=== PATIENT | female | born 1940 | race Caucasian/White ===

== ENCOUNTER 2016-05-09 10:38 | Emergency (ER) | payer OTHER ==
[2016-05-09 10:55] VITALS: RESP 18
--- NOTE | 2016-05-09 10:59 | CPEKG ---
Heart Rate: 57 RR Interval: 1053 P-R Interval: 168 QRSD Interval: 90 QT Interval: 480 QTC Interval: 468 P Pandora: -42 QRS Pandora: 14 T Wave Pandora: 12 EKG Severity - NORMAL ECG - EKG Impression: SINUS RHYTHM EKG Impression: Nonspecific changes see laterally in V4 through V6 with biphasic T-waves in V5 EKG Impression: and V6. Electronically Signed By: Alonso Thomason 09-May-2016 15:57:31
[2016-05-09 11:15] LABS: % IMMATURE GRANULYOCYTES 0.4 % (0.0-1.1); ABSOLUTE IMMATURE GRANULOCYTES 0.02 10^3/uL (0.00-0.10); ADD DIFF? NO; ADD MORPH? NO; ADD SCAN? NO; ATYPICAL LYMPHOCYTE FLAG 0 (0-99); FRAGMENT RBC FLAG 0 (0-99); HEMATOCRIT 40.6 % (38.0-47.0); HEMOGLOBIN 14.2 g/dL (12.6-16.3); LEFT SHIFT FLG 0 (0-99); LIPEMIA HEMOLYSIS FLAG 90 (0-99); MEAN CELL HEMOGLOBIN 31.7 pg (27.9-34.1); MEAN CELL VOLUME 90.6 fL (81.5-99.8); MEAN PLATELET VOLUME 9.4 fL (8.7-11.7); PLATELET CLUMPS FLAG 0 (0-99); PLATELET COUNT 235 10^3/uL (150-400); RED BLOOD CELL COUNT 4.48 10^6/uL (4.18-5.33); RED CELL DISTRIBUTION WIDTH 12.4 % (11.5-15.2)
--- NOTE | 2016-05-09 11:15 | UCPHY ---
H & P Patient Type: Established Chief Complaint Nursing Narrative: c/o Dizzy spells/High blood pressure/ and confusion on and off x 1 wk Time Seen by Provider: 05/09/16 10:54 HPI/ROS: CHIEF COMPLAINT: episode this morning for 30-45 minutes of confusion HISTORY OF PRESENT ILLNESS: 76-year-old lady for the last month has had periodic trouble whereby she will be asked question or go do something and will be able to actually complete the thought process or the task. For example, this morning that she attended [employer] services and then went to [employer] for hot chocolate, something to quite often. While there at the restaurant, somewhat testy question about something she should not been able to elaborate and discussed regarding her 's health. This did not quite work out and she was stumped and looked has been in complete blank and this persisted. At the same token she was able to talk completely and had no speech impediment or difficulty with word finding it was just that she can really do with the question which was something she in fact should have been able to do so. Her notes that she did not quite seem to come out of it until they arrived home some 45 minutes later. There has been no headache. These episodes happening anywhere from once to twice daily. At no time has she had had trouble actually contributing to the household as she usually does such as doing the cooking which she is in command of add shopping She has had no numbness tingling or focal motor weakness or loss of function of arm or leg. No headache. Blood pressure is somewhat elevated for her but not struggling so. REVIEW OF SYSTEMS: Constitutional: No fever, no chills. Eyes: No diplopia. ENT: No sore throat. Cardiovascular: No chest pain, no palpitations. Respiratory: No cough, shortness of breath, or wheezing. Gastrointestinal: No nausea vomiting or diarrhea. No abdominal pain. Genitourinary: No hematuria or frequency. Musculoskeletal: No back pain. Skin: No rashes. Neurological: See above 10 point ROS otherwise negative Source: Patient Exam Limitations: Other (Underlying history of dementia, mild) - Personal History Current Tetanus Diphtheria and Acellular Pertussis (TDAP): Yes - Medical/Surgical History Hx Asthma: No Hx Chronic Respiratory Disease: No Hx Diabetes: Yes Hx Cardiac Disease: Yes Hx Renal Disease: No Hx Cirrhosis: No Hx Alcoholism: No Hx HIV/AIDS: No Hx Splenectomy or Spleen Trauma: No Other PMH: CAD, ASD, HTN - Family History Significant Family History: No pertinent family hx - Social History Smoking Status: Never smoked Alcohol Use: None Drug Use: None - Physical Exam Exam: General Appearance: Alert, no distress. Afebrile. Normal phonation. No respiratory distress. Pleasant demeanor, thin, little old lady. Eyes: Pupils equal and round no pallor or injection. No icterus ENT, Mouth: Mucous membranes moist. Pharynx without erythema or exudate. TM Clear. Neck: No adenopathy. Supple. No JVD. Trachea in midline. Respiratory: There are no retractions, lungs are clear to auscultation. Cardiovascular: Regular rate and rhythm. Abdomen: Soft and nontender, no masses, bowel sounds normal. Femoral pulses equal. Neurological: Ox3. No motor weakness. Sensation intact. Gait nl. Normal station. Normal tandem walking. Normal [id number]. Normal [id number]. Visual seay are intact. Skin: Warm and dry, no rashes. Musculoskeletal: No joint swelling. Extremities: No edema. Homans sign negative. No cords. Psychiatric: Patient is oriented X 3, there is no agitation Constitutional: Initial Vital Signs Temperature (C) 36.6 C 05/09/16 10:54 Heart Rate 97 05/09/16 10:54 Respiratory Rate 18 05/09/16 10:54 Blood Pressure 203/79 H 05/09/16 10:54 O2 Sat (%) 97 05/09/16 10:54 O2 Delivery Mode Room Air O2 (L/minute) 2 Allergies/Adverse Reactions: promethazine Allergy (Severe, Verified 05/10/16 10:53) Loss of consciousness promethazine HCl [From Phenergan] Allergy (Severe, Verified 05/10/16 10:53) Other-Enter Comments Shellfish *RETIRED-12/23/11 [Shellfish] Allergy (Severe, Verified 05/10/16 10:53 ) Swelling/neck,face,throat erythromycin base [Erythromycin Base] Allergy (Intermediate, Verified 05/10/16 10:53) Other-Enter Comments Penicillins Allergy (Intermediate, Verified 05/10/16 10:53) Rash Home Medications: Medication Instructions Recorded Aspirin [Aspirin 325 mg (*)] 325 mg PO DAILY 05/10/16 Cholecalciferol Vit D3 [Vitamin D3 2,000 units PO DAILY 05/10/16 (*)] Herbals/Supplements -Info Only 1 ea PO DAILY 05/10/16 Levothyroxine [Synthroid 50 mcg 50 mcg PO DAILY06 05/10/16 (*)] Losartan/Hydrochlorothiazide 1 each PO DAILY 05/10/16 [Losartan-Hctz 100-25 mg Tab] Potassium Cl [Klor-Con 20 meq (*)] 20 meq PO DAILY 05/10/16 Pravastatin Sodium 20 mg PO DAILY 05/10/16 amLODIPine BESYLATE [Norvasc 2.5 2.5 mg PO DAILY 05/10/16 mg (*)] Medical Decision Making - Diagnostics EKG Interpretation: EKG: Interpreted by me contemporaneously. Normal sinus rhythm. Heart rate [ 57 ]. QTc [ for 68] STT segment: Nonspecific laterally in V4 through V6 as well as flattened to F. T Waves: Flat and biphasic in V5 and V6 Summary: Mild nonspecific ST-T changes. Imaging: CT scan as interpreted by the radiologist and discussed with radiologist and reviewed by me: Senescent changes. No bleed. No tumor. ED Course/Re-evaluation: Her clinical status was stable in she had no recurrence of her symptomatology that she expressed from this morning while here. Blood pressure slowly improved to a mild degree. I discussed with patient's prospect of going hospital for further diagnostic testing. They bought. Evidently she had a ruchi road some 18 months ago while at the local hospital including acquiring C diff and also having a strikingly severe reaction to Phenergan that required hospitalization in the ICU thus they really wanted to forego anything like that. As able to review old chart noted that she did have a PFO as diagnosed on a transesophageal echocardiogram in 2009. Furthermore I called her PCP who deferred to Dr. Ybarra. The PCP did however make recommendations of any amlodipine due to her already high dose lisinopril/ hydrochlorothiazide. Dr. Ybarra expressed the plan for a EEG as an outpatient and would arrange such. He suggested a carotid study as well. As this woman had an MRI and May of 2015 he does not recommend further diagnostic testing Laboratory studies here were stable. CT scan negative for tumor or bleed. - Data Points Laboratory Results: Laboratory Results 05/09/16 11:05/09/16 11:07 Departure - Departure Disposition: Home, Routine, Self-Care Clinical Impression: Episode of altered cognition, Patent foramen ovale Hypertension Qualifiers: Hypertension type: essential hypertension Qualifier Code: (I10) Essential ( primary) hypertension Condition: Good Instructions: Altered Mental Status (ED) Additional Instructions: Increased dose of aspirin from the 81 mg to 325 daily. He may use Excotrin as a coated aspirin if you have stomach trouble Dr. Ybarra will call you about setting up an EEG as well as a follow-up visit. Dr. Pires has this is a plan for you to take a new medicine, Amlodipine, for blood pressure. Call her office to schedule a foloow up in the next 10 - 14 days. Referrals: An Pires, [employer] [Primary Care Provider] - As per Instructions - PQRS PQRS Measurement: 134: Depression screening and followup, PRIME MD-PHQ2 (12 years and older) Over the last 2 weeks, how often have you been bothered by any of the following problems? 1. Feeling down, depressed, or hopeless? 2. Little interest or pleasure in doing things? Patient answered no to both 1 and 2 130: Documentation of medications. Reviewed all patient medications, doses, route and frequency. 226: Do you smoke? 47: 65 and older: Advanced care planning. Patient designates surrogate decision maker as spouse . Patient has advanced directive. 51: 18 years old and older with diagnosis of COPD, spirometry performance. Patient has no history of COPD 52: 18 years old and older with COPD and symptoms of COPD or FEV1<60% predicted prescribed a B Agonist. No hx of COPD.
[2016-05-09 11:28] LABS: ANION GAP 9 mEq/L (8-16); CALCIUM 9.1 mg/dL (8.5-10.4); CARBON DIOXIDE 28 mEq/l (22-31); CHLORIDE 103 mEq/L (97-110); CREATININE 0.7 mg/dL (0.6-1.0); GLOMERULAR FILTRATION RATE > 60; GLUCOSE 90 mg/dL (70-100); MAGNESIUM 2.1 mg/dL (1.6-2.3); POTASSIUM 3.5 mEq/L (3.5-5.2); SODIUM 140 mEq/L (134-144)
[2016-05-09 11:41] LABS: TROPONIN I < 0.012 ng/mL (0-0.034)
--- NOTE | 2016-05-09 11:43 | CT ---
CT Head (Without Contrast) Indication: Dizziness and confusion. Technique: Standard noncontrast head CT protocol utilizing 5 mm thick collimated slices and field of view of 23 cm. Dose reduction techniques were utilized. Comparison: Head CT dated February 15, 2009. Findings: The brain is normally developed. Minimal calcification of the cavernous segment of the dist al internal carotid artery is unchanged since 2008. No intracranial hemorrhage, mass lesion, swelling , or extraaxial fluid collection. The ventricles are normal caliber and midline. The quintanilla and white m atter has normal attenuation. No evidence of ischemia. The bones are unremarkable. The paranasal sinu ses are clear. Impression: Negative. No evidence of intracranial hemorrhage, ischemia, or mass. Comment: Results were discussed with Dr. Alonso Thomason at 11:37 May 09, 2016.
--- NOTE | 2016-05-09 11:57 | DX ---
Chest, PA and lateral. History: Chest pain. Confusion and disorientation. Comparison: February 2014. Findings: Heart size is enlarged and stable. Pulmonary vascularity appears normal. The lungs are mitesh r. No evidence for pleural effusion or pneumothorax. Mild degenerative changes seen in the thoracic s pine. Impression: Stable cardiomegaly. No evidence for acute cardiopulmonary abnormality.
[2016-05-09 13:01] VITALS: PULSE 78
[2016-05-09 13:30] VITALS: BP 177/91; TEMP 99; O2SAT 97
== END 2016-05-09 13:24 | disposition home or self-care (01) ==
LOC: CED 10:38
DX: R41.89 Other symptoms and signs involving cognitive functions and awareness (principal); I10 Essential (primary) hypertension; Q21.1 Atrial septal defect; I51.7 Cardiomegaly; I25.10 Atherosclerotic heart disease of native coronary artery without angina pectoris; Z88.0 Allergy status to penicillin
CPT/HCPCS: 70450; 71020; 93005; G0463; 80048-PO; 83735-PO; 84484-PO; 85025-PO

== ENCOUNTER 2016-05-10 10:47 | Observation (INO) | payer OTHER ==
--- NOTE | 2016-05-10 11:18 | CPEKG ---
Heart Rate: 58 RR Interval: 1034 P-R Interval: 164 QRSD Interval: 88 QT Interval: 520 QTC Interval: 511 P Meridian: -22 QRS Meridian: 33 T Wave Meridian: -61 EKG Severity - ABNORMAL ECG - EKG Impression: SINUS RHYTHM EKG Impression: ABNORMAL T, CONSIDER ISCHEMIA, LATERAL LEADS EKG Impression: PROLONGED QT INTERVAL Electronically Signed By: Haroon Aguirre 10-May-2016 13:33:18
[2016-05-10] MEDS ORDERED: ASPIRIN 81 MG CHEWABLE TAB ONE (11:24)
[2016-05-10 11:38] LABS: % IMMATURE GRANULYOCYTES 0.3 % (0.0-1.1); ABSOLUTE IMMATURE GRANULOCYTES 0.02 10^3/uL (0.00-0.10); ADD DIFF? NO; ADD MORPH? NO; ADD SCAN? NO; ATYPICAL LYMPHOCYTE FLAG 0 (0-99); FRAGMENT RBC FLAG 0 (0-99); HEMATOCRIT 45.1 % (38.0-47.0); HEMOGLOBIN 15.9 g/dL (12.6-16.3); LEFT SHIFT FLG 0 (0-99); LIPEMIA HEMOLYSIS FLAG 90 (0-99); MEAN CELL HEMOGLOBIN 31.2 pg (27.9-34.1); MEAN CELL HEMOGLOBIN CONCENTR. 35.3 g/dL (32.4-36.7); MEAN CELL VOLUME 88.6 fL (81.5-99.8); MEAN PLATELET VOLUME 9.6 fL (8.7-11.7); PLATELET CLUMPS FLAG 10 (0-99); PLATELET COUNT 255 10^3/uL (150-400); RED BLOOD CELL COUNT 5.09 10^6/uL (4.18-5.33); RED CELL DISTRIBUTION WIDTH 12.2 % (11.5-15.2)
--- NOTE | 2016-05-10 11:45 | EDPHY ---
H & P Stated Complaint: DIZZY, NUMBNESS TINGLING LEGS, NEAR SYNCOPE Time Seen by Provider: 05/10/16 10:50 HPI/ROS: CHIEF COMPLAINT: Dizziness, tingling, chest pain HISTORY OF PRESENT ILLNESS: This is a 76-year-old female who presents with complaints of dizzy episodes, tingling in her legs and hands, and chest pain yesterday. Patient is a somewhat poor historian as is her . For about a week she has had episodes of dizziness that she describes as spinning and needs to sit down. also reports that she has had episodes where she is altered and can't focus and seems to lose her thoughts. These episodes last a minute or 2. It is unclear if the dizziness and the altered mentation occur at the same time. Yesterday she evidently had some chest pain and was seen at the urgent care. They increased her aspirin and also put her on amlodipine. Today she was at her primary care physician's office where she was reporting some chest discomfort, was anxious, hyperventilating, and dizzy. They declined ambulance transfer and her brought her here. Patient has some unclear history of a valve problem for which she sees Dr. Cuellar. Has had no open heart surgery, no stents, no valve surgery. Patient denies asthma or emphysema. She denies weakness in an arm or leg, speech difficulty, or other stroke-like symptoms. No fevers or chills, cold, cough, vomiting, diarrhea, urinary complaints or headache. REVIEW OF SYSTEMS: Aside from elements discussed in the HPI, a comprehensive 10-point review of systems was reviewed and is negative. PAST MEDICAL HISTORY: Hypertension SOCIAL HISTORY: Here with her . VITAL SIGNS Reviewed by me. GENERAL: Elderly female, seems very restless. Difficult historian. Denies pain. HEENT: Atraumatic. Eyes: PERRL, EOMI, no icterus, no injection. Cranial nerves 2-12 are intact. Mouth: moist mucous membranes. No erythema or lesions. Neck: supple with no adenopathy. LUNGS: Clear to auscultation bilaterally, no wheezes, rhonchi or rales. CARDIAC: Regular rate and rhythm, no rubs, murmurs or gallops. ABDOMEN: Soft, nontender, nondistended, bowel sounds normal. BACK: No CVA tenderness. EXTREMITIES: No trauma. No edema. Range of motion is normal throughout. NEURO: Alert and oriented, motor strength 5/5 throughout. Sensation intact to light touch. SKIN: Warm and dry, no rash. PSYCHIATRIC: Normal mentation, no agitation. - Personal History Current Tetanus/Diphtheria Vaccine: Yes Tetanus Vaccine Date: < 10 YEARSX - Medical/Surgical History Hx Asthma: No Hx Chronic Respiratory Disease: No Hx Diabetes: Yes Hx Cardiac Disease: Yes Hx Renal Disease: No Hx Cirrhosis: No Hx Alcoholism: No Hx HIV/AIDS: No Hx Splenectomy or Spleen Trauma: No Other PMH: CAD, ASD, HTN - Social History Smoking Status: Never smoked Constitutional: Initial Vital Signs Temperature (C) 37 C 05/10/16 10:50 Heart Rate 65 05/10/16 10:50 Respiratory Rate 16 05/10/16 10:50 Blood Pressure 153/86 H 05/10/16 10:50 O2 Sat (%) 97 05/10/16 10:50 O2 Delivery Mode Room Air Allergies/Adverse Reactions: promethazine Allergy (Severe, Verified 05/10/16 10:53) Loss of consciousness promethazine HCl [From Phenergan] Allergy (Severe, Verified 05/10/16 10:53) Other-Enter Comments Shellfish *RETIRED-12/23/11 [Shellfish] Allergy (Severe, Verified 05/10/16 10:53 ) Swelling/neck,face,throat erythromycin base [Erythromycin Base] Allergy (Intermediate, Verified 05/10/16 10:53) Other-Enter Comments Penicillins Allergy (Intermediate, Verified 05/10/16 10:53) Rash Home Medications: Medication Instructions Recorded Aspirin [Aspirin 325 mg (*)] 325 mg PO DAILY 05/10/16 Cholecalciferol Vit D3 [Vitamin D3 2,000 units PO DAILY 05/10/16 (*)] Herbals/Supplements -Info Only 1 ea PO DAILY 05/10/16 Levothyroxine [Synthroid 50 mcg 50 mcg PO DAILY06 05/10/16 (*)] Losartan/Hydrochlorothiazide 1 each PO DAILY 05/10/16 [Losartan-Hctz 100-25 Mg Tab] Potassium Cl [Klor-Con 20 meq (*)] 20 meq PO DAILY 05/10/16 Pravastatin Sodium 20 mg PO DAILY 05/10/16 amLODIPine BESYLATE [Norvasc 2.5 2.5 mg PO DAILY 05/10/16 mg (*)] Medical Decision Making - Diagnostics EKG Interpretation: 12-LEAD EKG: Please see the full report in [facility]. My interpretation: ST depression inferiorly, laterally. Imaging: Results: CT scan of the head was obtained. I viewed the images independently on the PACS system. I discussed the results of the study with the radiologist. Impression: No acute findings. Please see the full radiology report. ED Course/Re-evaluation: 76-year-old female presented emergency department with episodes of dizziness, episode of chest pain yesterday, and episodes of altered mentation. Emergency department evaluation included EKG with nonspecific ST depression inferiorly and laterally. Troponin was negative. BNP is minimally elevated at 1200, D-dimer was negative. Chest x-ray shows stable cardiomegaly, head CT was negative. Patient was admitted to the hospital for further evaluation of these episodes, as well as further evaluation for possible cardiac source Course was discussed with Anjelica from [facility]. Patient will be admitted to Dr. Ladd. Differential Diagnosis: Differential diagnosis of the patient's dizziness was considered including but not limited to peripheral and central causes of vertigo, cardiac arrhythmias, cardiac ischemia, electrolyte disturbances, neurologic causes, orthostatic causes including dehydration, and blood loss. Consult/Admit Bed Type: Dr. Ladd, [facility] - Data Points Laboratory Results: Laboratory Results 05/10/16 11:17 05/10/16 11:17 05/10/16 11:17 WBC 5.89 10^3/uL (3.80-9.50) RBC 5.09 10^6/uL (4.18-5.33) Hgb 15.9 g/dL (12.6-16.3) Hct 45.1 % (38.0-47.0) MCV 88.6 fL (81.5-99.8) MCH 31.2 pg (27.9-34.1) MCHC 35.3 g/dL (32.4-36.7) RDW 12.2 % (11.5-15.2) Plt Count 255 10^3/uL (150-400) MPV 9.6 fL (8.7-11.7) Neut % (Auto) 77.7 H % (39.3-74.2) Lymph % (Auto) 14.4 L % (15.0-45.0) [place] % (Auto) 6.5 % (4.5-13.0) Eos % (Auto) 0.3 L % (0.6-7.6) Baso % (Auto) 0.8 % (0.3-1.7) Nucleat RBC Rel Count 0.0 % (0.0-0.2) Absolute Neuts (auto) 4.57 10^3/uL (1.70-6.50) Absolute Lymphs (auto) 0.85 L 10^3/uL (1.00-3.00) Absolute Monos (auto) 0.38 10^3/uL (0.30-0.80) Absolute Eos (auto) 0.02 L 10^3/uL (0.03-0.40) Absolute Basos (auto) 0.05 10^3/uL (0.02-0.10) Absolute Nucleated RBC 0.00 10^3/uL (0-0.01) Immature Gran % 0.3 % (0.0-1.1) Immature Gran # 0.02 10^3/uL (0.00-0.10) D-Dimer 0.28 ug/mLFEU (0.00-0.50) Sodium 145 H mEq/L (134-144) Potassium 3.1 L mEq/L (3.5-5.2) Chloride 105 mEq/L (97-110) Carbon Dioxide 25 mEq/l (22-31) Anion Gap 15 mEq/L (8-16) BUN 19 mg/dL (7-23) Creatinine 0.8 mg/dL (0.6-1.0) Estimated GFR > 60 Glucose 102 H mg/dL (70-100) Calcium 9.3 mg/dL (8.5-10.4) Total Bilirubin 1.2 mg/dL (0.1-1.4) Conjugated Bilirubin 0.1 mg/dL (0.0-0.5) Unconjugated Bilirubin 1.1 mg/dL (0.0-1.1) AST 26 IU/L (14-46) ALT 32 IU/L (9-52) Alkaline Phosphatase 82 IU/L (38-126) Troponin I < 0.012 ng/mL (0-0.034) NT-Pro-B Natriuret Pep 1260 H pg/mL (0-450) Total Protein 7.5 g/dL (6.3-8.2) Albumin 4.3 g/dL (3.5-5.0) Lipase 104.0 IU/L (23-300) Departure - Departure Disposition: [facility] Inpatient Acute Clinical Impression: Dizziness Chest pain Qualifiers: Chest pain type: unspecified Qualifier Code: (R07.9) Chest pain, unspecified Condition: Good
[2016-05-10 11:48] LABS: ALANINE AMINOTRANSFERASE 32 IU/L (9-52); ALBUMIN 4.3 g/dL (3.5-5.0); ALKALINE PHOSPHATASE 82 IU/L (38-126); ANION GAP 15 mEq/L (8-16); ASPARTATE AMINOTRANSFERASE 26 IU/L (14-46); BILIRUBIN,TOTAL 1.2 mg/dL (0.1-1.4); BILIRUBIN-CONJUGATED 0.1 mg/dL (0.0-0.5); BILIRUBIN-UNCONJUGATED 1.1 mg/dL (0.0-1.1); CALCIUM 9.3 mg/dL (8.5-10.4); CARBON DIOXIDE 25 mEq/l (22-31); CHLORIDE 105 mEq/L (97-110); CREATININE 0.8 mg/dL (0.6-1.0); GLOMERULAR FILTRATION RATE > 60; GLUCOSE 102 mg/dL (70-100); POTASSIUM 3.1 mEq/L (3.5-5.2); SODIUM 145 mEq/L (134-144); TOTAL PROTEIN 7.5 g/dL (6.3-8.2)
[2016-05-10 11:59] LABS: TROPONIN I < 0.012 ng/mL (0-0.034)
--- NOTE | 2016-05-10 12:16 | CT ---
CT Head Without Contrast History: Dizziness, altered mental status. Comparison: CT head May 09, 2016. Technique: Axial unenhanced images were obtained from the vertex through the skull base. Dose reduct ion techniques were utilized. Findings: Crooks-white differentiation is preserved. There is mild diffuse cerebral atrophy with scatte red periventricular and subcortical low attenuation, suggesting chronic microvascular ischemic gliosi s. No intracranial hemorrhage is identified. No extraaxial fluid collections are identified. There is no mass, mass effect or evidence of infarct. Atherosclerotic calcification is present in the dista l internal carotid arteries. The skull and skull base are unremarkable. The paranasal sinuses and ma stoid air cells are normally aerated. Impression: 1. No acute intracranial findings. If symptoms persist and clinical suspicion warrants, consider MRI. 2. Diffuse cerebral atrophy with scattered periventricular and subcortical low attenuation consistent with chronic microvascular ischemic gliosis. Findings discussed with Alee Velasquez 05/10/2016 at 12:10 hours.
--- NOTE | 2016-05-10 12:16 | DX ---
PA and lateral chest x-ray 1137 hours. History: Chest pain with dizziness and confusion. Findings: Comparison to May 09, 2016. Heart size remains mildly enlarged. Pulmonary vasculature is not significantly engorged. The lungs ar e clear without consolidation, effusion, or pneumothorax. The lungs are mildly hyperexpanded. Mild de generative hypertrophic osteophytes are present mid to lower thoracic spine. Impression: 1. Stable mild cardiomegaly. 2. No active cardiopulmonary disease seen. 3. Hyperexpanded lungs. This can be seen with mild underlying COPD.
[2016-05-10] MEDS ORDERED: ONDANSETRON 4 MG/2 ML VIAL IVP PRN (14:19)
[2016-05-10] MEDS ORDERED: ACETAMINOPHEN 650 MG SUPP PR PRN (14:19)
--- NOTE | 2016-05-10 14:23 | PDGENHP ---
History and Physical History and Physical: HISTORY AND PHYSICAL ADMISSION NOTE CC: Several episodes of altered alertness, along with tingling and numbness, and tremulousness HISTORY: The history from this patient is somewhat difficult as she clearly has very poor memory due to known dementia. In addition her is the main historian here and his memory is not entirely complete for some details. The patient was apparently in her usual state until approximately a week ago. Around that time she started having some spells of change in alertness while sitting in a chair. Her describes that she would be doing a puzzle reading a magazine and would close her eyes and slump slightly to 1 side. She would not respond when he talked to her. He did not make other efforts to arouse her. She appeared to be breathing normally during the spells and he says they lasted a few minutes each. When she did wake up she appeared not to be confused and would typically greens picker her reading or puzzle and resume working on them. There was nothing that looked worse sounded like seizure . Her breathing looks normal during these episodes and she did not appear to be any distress otherwise. She had a couple more episodes yesterday. In addition yesterday she had an episode where she was having trouble performing tasks she would normally do and seem somewhat confused about them. She did not have any time during all of this any focal speech or language difficulty, any difficulty walking, or any focal weakness or facial asymmetry that the patient's family noticed. Yesterday she did have some diffuse tremor and felt shaky, and during this also noticed numbness or tingling in both upper extremities. She also measure blood pressure home noticed to be high. She was seen at an urgent care where she was evaluated and her symptoms seemed to have resolved and blood pressures down so she was discharged home. Today she was seen by her primary care physician and again had high blood pressure and felt tremulous and shaky. She was sent to the ER for further evaluation and she is now admitted to the hospital where I am seeing her. PMH Moderately advanced dementia Hypertension Dyslipidemia Non flow limiting coronary artery disease by angiography Moderate to severe tricuspid regurgitation with pulmonary hypertension right cyst colic pressure at 48 based on echocardiogram 2012 unremarkable cardiac stress test in 2013 She has had 4 Holter monitors most recently in 2013 all showing PACs rare PVCs and the most recent showing some nonsustained SVT but no other arrhythmia ROS:10 system comprehensive review of systems is otherwise unrevealing Specifically there been no fevers, nausea vomiting, respiratory or other infectious symptoms, chest pain, palpitations, leg swelling, shortness of breath , bleeding, falls or injuries, changes in medicines, use of alcohol. Family history: There are no significant findings to indicate any concerns related to her current episode SOCIAL HISTORY: the patient is lives with her . Her and son are both with her at the bedside now and very supportive. No tobacco or alcohol MEDICATIONS: these are reconciled by the pharmacist in the electronic record and I reviewed the list and ordered appropriate medications. 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, no focal weakness ; stands and walks with these, balance looks good Pupils round equal and reactive to light normal diameter Skin: warm, dry, good color, no rash HEENT: normal Neck: no mass or jvd Resps: relaxed Lungs: clear breath sounds Heart: regular, no murmur Abdomen: soft, nondistended, nontender, +BS, no mass Upper Extremities: normal Lower Extremities: no edema, warm No Bleeding or bruising IV site: looks normal LABORATORY DATA: sodium slightly high 145 potassium slightly low, otherwise unremarkable lab studies in the ER 12 lead EKG in the ER, my personal interpretation of the tracing: Sinus bradycardia with evidence of LVH nothing ischemic RADIOLOGY STUDIES: CT scan of head done in the ER, my personal review of images: No evidence of stroke mass bleeding or other acute changes chest x-ray done in the ER, my personal review of images: Borderline evidence of COPD, no signs of heart failure, infection, effusions, mass ASSESSMENT: DIAGNOSES: # RECURRENT EPISODES OF ALTERED CONSCIOUSNESS OF UNCERTAIN MECHANISM ETIOLOGY # MILD HYPERTENSION # VAGUELY DESCRIBED EPISODE OF DIFFICULTY FIGURING OUT HOW TO DO TASKS YESTERDAY # SUSPECT SHE IS SOMEWHAT DEHYDRATED, AND HAS MILD HYPERNATREMIA # MILD HYPOKALEMIA # NO CURRENT DEFINITIVE CARDIAC SYMPTOMS OR FINDINGS, WITH HISTORY OF EXTENSIVE WORKUP WITHOUT CONCERNING ABNORMALITIES IDENTIFIED IN THE PAST # SOME SUSPICION OF SLEEP APNEA BASED ON HER 'S DESCRIPTIONS FROM HOME # MODERATELY ADVANCED DEMENTIA I have discussed her symptoms in detail with Dr. Get Ybarra. At this point we are feeling at her symptoms are not likely neurologic in origin. It is possible she may be falling asleep. It is possible there is some autonomic instability with alterations in blood pressure. She does appear to have some dehydration and this may be affecting her current episodes. There also could be some aspect of hypertension induced symptomatology as she was quite hypertensive at urgent care yesterday, although this may be as much due to anxiety as it is the cause of the symptoms. These symptoms do not seem likely to be seizure. Dr. Ybarra will consider this further and will determine whether or not EEG testing would be helpful. Another passable aggravating factor is the possibility that she might have some sleep apnea, and may have not been getting good sleep recently related to that. Given her age we could be concerned certainly about cardiac arrhythmia or other cardiac etiologies however there is nothing definitive about her symptoms here and her previous cardiac evaluations certainly did not show any high risk abnormalities. There was some pulmonary hypertension but she is not really having symptoms that sound likely due to pulmonary hypertension. PLANS: - admission for now to observation - home visitor home base head start -Gentle IV hydration with replacement of potassium -Serial orthostatic by vital sign measures -Consider further investigations based on her progress -At some point she should have sleep apnea testing done as her describes some symptoms partially suggestive of sleep apnea I have reviewed the patient's case in detail with Dr. Get Ybarra and Dr. Dejan Cuellar. I have received and reviewed clinic records from Dr. Cuellar office. I have reviewed the patient's past medical records as part of this assessment, including Urgent care records in detail from yesterday, as well as clinic records from Dr. Cuellar office
--- NOTE | 2016-05-10 17:50 | GCON ---
[f rep st] CONSULTATION NEUROLOGY CONSULTATION. HISTORY OF PRESENT ILLNESS: The patient is a very pleasant 76-year-old lady who I see as an outpatient for cognitive impairment/short-term memory loss. We most recently started a trial of memantine. I was called by Urgent Care yesterday regarding some dizzy spells and worsened short-term memory. I requested she get a carotid ultrasound, start on aspirin, and follow up with me along with an EEG order I placed. In the interim, she saw her primary care provider for dizziness and hypertension today. She began to cry out in pain, apparently at the primary care physician's office, along with having the paresthesias, was thought to possibly be having a panic attack and was sent to the emergency department. She was admitted for further evaluation. In reviewing these notes, I see that she has been having severe hypertension with systolics in the 200s in urgent care and amlodipine was started. Here, her blood pressure is better but she is now having some orthostatic changes. No focal numbness or lateralized numbness, weakness, field cuts, dysarthria, or dysphagia on my history with the patient and her who I called in the presence of the patient. What the patient and her describe as her chief complaint are "dizzy spells" where she feels faint with position changes as of today and before amlodipine, a general sense of feeling faint or dizzy in a more consistent fashion. They feel that this was related to her blood pressure initially. There was no loss of consciousness. No seizure activity. No focality or lateralized symptoms. Her memory is exacerbated with these symptoms. REVIEW OF SYSTEMS: A 10-point review of system was performed and only pertinent to HPI. PAST MEDICAL HISTORY: Please see Dr. Ladd's history and physical. SOCIAL HISTORY: Please see Dr. Ladd's history and physical. FAMILY HISTORY: Please see Dr. Ladd's history and physical. HOME MEDICATIONS: Please see Dr. Ladd's history and physical. ALLERGIES: Please see Dr. Ladd's history and physical. PHYSICAL EXAMINATION: VITAL SIGNS: Blood pressure now is 143/95, heart rate 67 , afebrile at 37, respirations 16. GENERAL: In no acute distress and very pleasant. She recognizes me when I enter the room. HIGHER MENTAL FUNCTION: She is awake and alert. No aphasia. CRANIAL NERVES: Normal 2 through 7 and 12. MOTOR FUNCTION: Reveals no focal weakness. No pronator drift. Normal reflexes throughout. SENSORY: Reveals normal light touch in all 4 extremities. Coordination shows no ataxia in her limbs. IMPRESSION AND PLAN: 1. Dizziness. 2. Cognitive impairment. 3. Hypertension. The patient's symptomatology may reflect an underlying hypertensive urgency with her systolics being above 200 causing the presenting symptoms. She is now having some orthostatic blood pressures after the amlodipine was started. We will check an MRI brain without contrast and carotid ultrasound to ensure there are no other acute vascular abnormalities present. It seems unlikely based on her history and exam. She will continue aspirin 325 mg daily coated with meals. We discussed potential risks, benefits, and alternatives of this dose of aspirin. We will encourage p.o. fluids. We will closely monitor in terms of ECG, telemetry, and blood pressures overnight. I will follow up on the above , and we will make further recommendations accordingly. Thank you for this consultation. /[id number]/MODL MTDD
[2016-05-10] MEDS ORDERED: NS W/ 20 KCl/L 1,000 ML IV SCH (18:00)
--- NOTE | 2016-05-10 18:28 | MR ---
MRI of the Brain (Without Contrast) History: Amnesia, recurrent. Comparison: May 19, 2015, CT earlier (negative) Technique: T1-weighted images were acquired axially and sagittally from the foramen magnum to the ve rtex. Axial fast inversion recovery, fast T2-weighted, GRE and diffusion-weighted axial images were obtained without contrast. Findings: There is a single new microvascular ischemic T2-weighted focus of hyperintensity identified only on the FLAIR imaging sequence in the medial left mid parietal lobe (image 18, series 4). This i s not bright on the diffusion study and does not demonstrate hemorrhage on the gradient sequence. Oth er similar isovolumic T2-weighted foci of white matter hyperintensity are stable. There is The ventricles, cisterns, and sulci are consistent with each other and underlying stable mil d-moderate cerebral atrophy. There is no hydrocephalus, midline shift, herniation, or epidural/subdur al hematomas. No intracranial hemorrhage or masses. Diffusion-weighted sequence demonstrates no acute infarct. Cerebellar tonsils are in normal position. Pituitary gland is normal in size. Normal signal flow-void in the superior sagittal sinus, basilar artery, and bilateral internal carotid arteries in dicating patency. There is stable chronic erosive change of the odontoid process suggesting the possi bility of rheumatoid arthritis. Paranasal sinuses and mastoid air cells are clear. Impression: 1. Single, new since May 2015, but nonacute, focus of T2 hyperintensity in the white matter of the left parietal lobe. Otherwise stable. No source for recurrent and lesion identified. 2. Chronic erosion of the odontoid process. Is there history of rheumatoid arthritis?
--- NOTE | 2016-05-10 20:50 | US ---
Bilateral Duplex/Doppler Carotid Sonography Clinical Indications: Amnesia, dizziness, hypertension Technique: The cervical portions of the carotid and vertebral arteries were imaged and interrogated by color and pulsed Duplex/Doppler. Spectral analysis was performed. Findings: Right Carotid: Right CCA peak systolic velocity = 90 cm/sec Right ICA peak systolic velocity = 53 cm/sec Right ECA peak systolic velocity = 75 cm/sec Right ICA/CCA systolic velocity ratio = 0.59 No flow-limiting carotid stenosis. Minimal calcified plaque involving the right carotid bulb and prox imal right internal carotid artery. Left Carotid: Left CCA peak systolic velocity = 92 cm/sec Left ICA peak systolic velocity = 58 cm/sec Left ECA peak systolic velocity = 87 cm/sec Left ICA/CCA systolic velocity ratio = 0.63 No flow-limiting carotid stenosis. Mild calcified plaque involving the left carotid bulb and proximal left internal carotid artery. Vertebral Arteries: Antegrade flow is shown by pulsed Doppler of each vertebral artery. Incidental complex nodule in the left lobe of the thyroid measuring 1.1 x 1 x 0.8 cm. Impression: 1. Incidental left thyroid nodule measuring 1.1 cm, recommend follow-up ultrasound thyroid gland. 2. Mild atherosclerotic disease bilateral carotid bulbs. 3. No flow-limiting carotid stenosis. 4. Bilateral vertebral arteries are patent with antegrade flow. Measurement of carotid stenosis is based on velocity parameters that correlate the residual internal carotid diameter with [place] Symptomatic Carotid Endarterectomy Trial (NASCET) based stenosis levels.
[2016-05-11 05:19] VITALS: RESP 18
[2016-05-11] MEDS ORDERED: LEVOTHYROXINE 50 MCG TAB PO SCH (06:00)
[2016-05-11] MEDS ORDERED: CHOLECALCIFEROL VIT D3 1,000 UNITS TAB PO SCH (09:00)
[2016-05-11] MEDS ORDERED: ASPIRIN 325 MG TAB PO SCH (09:00)
[2016-05-11] MEDS ORDERED: HYDROCHLOROTHIAZIDE 25 MG TAB PO SCH (09:00)
[2016-05-11] MEDS ORDERED: ENOXAPARIN 40 MG/0.4 ML SYR SC SCH (09:00)
[2016-05-11] MEDS ORDERED: POTASSIUM CL 20 MEQ TAB PO SCH (09:00)
[2016-05-11] MEDS ORDERED: LOSARTAN POTASSIUM 50 MG TAB PO SCH (09:00)
[2016-05-11] MEDS ORDERED: PRAVASTATIN SODIUM 20 MG TAB PO SCH (09:00)
[2016-05-11] MEDS ORDERED: NON-FORMULARY NEW DRUG (Losartan/Hydrochlorothiazide [Losartan-Hctz 100-25 Mg Tab] 1 EACH) PO SCH (09:00)
[2016-05-11 11:15] VITALS: BP 126/74; PULSE 70; TEMP 97.9; O2SAT 95
[2016-05-11 12:36] LABS: ANION GAP 9 mEq/L (8-16); CALCIUM 8.8 mg/dL (8.5-10.4); CARBON DIOXIDE 24 mEq/l (22-31); CHLORIDE 111 mEq/L (97-110); CREATININE 0.7 mg/dL (0.6-1.0); GLOMERULAR FILTRATION RATE > 60; GLUCOSE 155 mg/dL (70-100); POTASSIUM 3.8 mEq/L (3.5-5.2); SODIUM 144 mEq/L (134-144)
--- NOTE | 2016-05-11 12:52 | NEUROPROG ---
Assessment: 1. Dizziness 2. Hypertension the patient's MRI brain does not show any acute infarct. It is fairly stable from her previous study. Carotid ultrasound does not show any flow-limiting stenosis in the carotid system. Overnight, her blood pressures have been more stable and her symptoms have improved/resolved. Unclear what caused her symptoms. Hypertensive urgency versus anxiety type symptoms. I have asked her to check her blood pressure daily or twice daily for the next 2 weeks and follow up with a printing sales representative for further titration of her antihypertensive medications. She will call my office to have an outpatient EEG her follow-up afterwards for further recommendations. She did not start the memantine that we discussed at her last visit with me as an outpatient. She will be on indefinite driving restrictions and seizure precautions until I see her as an outpatient. Subjective: no new symptoms, symptoms resolved / improved Objective: Vital Signs Temp Pulse Resp BP Pulse Ox 36.6 C 70 18 126/74 H 95 05/11/16 11:14 05/11/16 11:14 05/11/16 11:14 05/11/16 11:14 05/11/16 11:14 Laboratory Results 05/11/16 10:05 awake and alert lucid no aphasia no focal weakness Allergies/Adverse Reactions: promethazine Allergy (Severe, Verified 05/10/16 10:53) Loss of consciousness promethazine HCl [From Phenergan] Allergy (Severe, Verified 05/10/16 10:53) Other-Enter Comments Shellfish *RETIRED-12/23/11 [Shellfish] Allergy (Severe, Verified 05/10/16 10:53 ) Swelling/neck,face,throat erythromycin base [Erythromycin Base] Allergy (Intermediate, Verified 05/10/16 10:53) Other-Enter Comments Penicillins Allergy (Intermediate, Verified 05/10/16 10:53) Rash
--- NOTE | 2016-05-11 18:57 | PDDCSUM ---
Discharge Summary Discharge Summary: DISCHARGE SUMMARY NOTE DISCHARGE DIAGNOSES: -Orthostatic hypotension, likely neurologically mediated and aggravated by dehydration -Dehydration, likely due to poor oral intake of fluids Along with use of diuretic -essential hypertension CONSULTANTS: Dr. Get Ybarra of neurology HOSPITAL COURSE SUMMARY: This patient was sent into the hospital after presenting with with feeling of tremulousness and dizziness without vertigo. She also did have some elevated blood pressure. Her describes at 1 point in a doctor's office she was sitting in a chair and had extension of her arms and legs and was having difficulty moving the somehow. She had been seen the day before in Urgent Care with similar symptoms and was started at that time on low-dose amlodipine for high blood pressure. At the time of her presentation here to the hospital the only significant finding was significant orthostatic hypotension with 30 point drop in systolic and 20 point drop in diastolic from supine to standing without tachycardia. She was treated with IV fluids and her symptomatic and measured orthostasis all resolved after 1 L. she felt much better after this. The patient did have some mild intention tremor observed here but did not have other tremor or any signs of seizure. She has chronic memory deficit and seemed to be at her baseline but no other focal neurologic deficits here. 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 There are no other acute cardiac findings. There was no sign of infection. No other organ dysfunctions. 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 The orthostasis was probably causing her to feel dizzy and have aggravation of her intention tremor. At this time after discussion with the patient's she is instructed to significantly increase her fluid intake and monitor her symptoms. If she has return or ongoing symptoms she may need to consider discontinuing her diuretic and use of increase of her other antihypertensives if necessary. She is stable for discharge to home at this time. She will follow up with her primary care physician next week and keep blood pressure numbers to take the clinic with her. MEDICATION CHANGES: None, she will continue the low-dose amlodipine which was started the day before admission FOLLOW-UP PLAN: With Dr. An Pires next week Greater than 35 minutes bedside and care coordination time today
== END 2016-05-11 15:44 | disposition home or self-care (01) ==
LOC: F1N 12:51
PROVIDERS: ADMIT Internal Medicine; ATTEND Internal Medicine
DX: I95.1 Orthostatic hypotension (principal); E86.0 Dehydration; I10 Essential (primary) hypertension; R42 Dizziness and giddiness; R07.9 Chest pain, unspecified; R41.82 Altered mental status, unspecified; F03.90 Unspecified dementia, unspecified severity, without behavioral disturbance, psychotic disturbance, mood disturbance, and anxiety; G31.84 Mild cognitive impairment of uncertain or unknown etiology; I25.10 Atherosclerotic heart disease of native coronary artery without angina pectoris; Q21.1 Atrial septal defect; I36.1 Nonrheumatic tricuspid (valve) insufficiency; E04.1 Nontoxic single thyroid nodule; Z88.0 Allergy status to penicillin
CPT/HCPCS: 70450; 70551; 71020; 93005; 93880; 99285; G0378; J1650

== ENCOUNTER → 2016-05-31 | Outpatient (CLI) | payer OTHER | LOC: FIMAGING 09:26 | PROVIDERS: ATTEND Physician Assistant Medical | DX: E04.1 Nontoxic single thyroid nodule (principal) ==

== ENCOUNTER → 2016-06-28 | Outpatient (CLI) | payer OTHER ==
[~2016-06-28] MED LIST: LIDOCAINE 1% 30 ML SDV ONE; NA BICARBONATE 50 MEQ/50 ML VIAL ONE
== END ==
LOC: FIMAGING 12:07
PROVIDERS: ATTEND Internal Medicine Cardiovascular Disease
PROC: 0GBG3ZX Excision of Left Thyroid Gland Lobe, Percutaneous Approach, Diagnostic (ICD-10-PCS; principal; 2016-06-28)
DX: E04.1 Nontoxic single thyroid nodule (principal)

== ENCOUNTER → 2016-10-30 | Outpatient (CLI) | payer OTHER | LOC: FIMAGING 14:05 | PROVIDERS: ATTEND Nurse Practitioner | DX: Z12.31 Encounter for screening mammogram for malignant neoplasm of breast (principal) | CPT/HCPCS: G0202 ==

== ENCOUNTER 2016-12-03 18:04 | Emergency (ER) | payer OTHER ==
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
[2016-12-03] MEDS ORDERED: IOPAMIDOL (ISOVUE-300) 100 ML BTL ONE (18:34)
[2016-12-03 18:45] LABS: ADD DIFF? NO; ADD MORPH? NO; ADD SCAN? NO; ATYPICAL LYMPHOCYTE FLAG 10 (0-99); FRAGMENT RBC FLAG 0 (0-99); HEMATOCRIT 38.9 % (38.0-47.0); HEMOGLOBIN 13.5 g/dL (12.6-16.3); LEFT SHIFT FLG 0 (0-99); LIPEMIA HEMOLYSIS FLAG 90 (0-99); MEAN CELL HEMOGLOBIN 31.5 pg (27.9-34.1); MEAN CELL HEMOGLOBIN CONCENTR. 34.7 g/dL (32.4-36.7); MEAN CELL VOLUME 90.7 fL (81.5-99.8); MEAN PLATELET VOLUME 9.2 fL (8.7-11.7); PLATELET CLUMPS FLAG 0 (0-99); PLATELET COUNT 238 10^3/uL (150-400); RED BLOOD CELL COUNT 4.29 10^6/uL (4.18-5.33); RED CELL DISTRIBUTION WIDTH 12.7 % (11.5-15.2)
[2016-12-03 18:55] LABS: INR 0.95 (0.83-1.16); PROTIME(PATIENT) 12.4 SEC (12.0-15.0)
[2016-12-03 18:56] LABS: APTT 26.1 SEC (23.0-38.0)
[2016-12-03 18:57] LABS: ANION GAP 14 mEq/L (8-16); CALCIUM 8.9 mg/dL (8.5-10.4); CARBON DIOXIDE 26 mEq/l (22-31); CHLORIDE 101 mEq/L (97-110); CREATININE 0.7 mg/dL (0.6-1.0); GLOMERULAR FILTRATION RATE > 60; GLUCOSE 107 mg/dL (70-100); POTASSIUM 3.6 mEq/L (3.5-5.2); SODIUM 141 mEq/L (134-144)
[2016-12-03 19:40] LABS: COLOR YELLOW; LEUKOCYTE ESTERASE,URINE 1+ (NEGATIVE); NITRITE,URINE NEGATIVE (NEGATIVE); PH,URINE 6.5 (5.0-7.5)
[2016-12-03 19:49] VITALS: BP 146/79; RESP 18; O2SAT 96
[2016-12-03 20:03] VITALS: PULSE 62; TEMP 98.2
== END 2016-12-03 19:57 | disposition home or self-care (01) ==
LOC: CED 18:04
DX: S30.1XXA Contusion of abdominal wall, initial encounter (principal); S70.01XA Contusion of right hip, initial encounter; I25.10 Atherosclerotic heart disease of native coronary artery without angina pectoris; I10 Essential (primary) hypertension; E11.9 Type 2 diabetes mellitus without complications; Z79.82 Long term (current) use of aspirin; V49.40XA Driver injured in collision with unspecified motor vehicles in traffic accident, initial encounter; Y92.410 Unspecified street and highway as the place of occurrence of the external cause; Y99.8 Other external cause status; Y93.89 Activity, other specified
CPT/HCPCS: 73502-PO; 73551-PO; 74176-PO; 80048-PO; 81003-PO; 81015-PO; 85025-PO; 85610-PO; 85730-PO; Q9967

== ENCOUNTER → 2017-01-02 | Outpatient (CLI) | payer OTHER | LOC: FIMAGING 13:50 | PROVIDERS: ATTEND Nurse Practitioner | DX: Z13.820 Encounter for screening for osteoporosis (principal); M85.80 Other specified disorders of bone density and structure, unspecified site; Z78.0 Asymptomatic menopausal state ==

== ENCOUNTER → 2017-02-05 | Outpatient (CLI) | payer OTHER ==
[~2017-02-05] MED LIST changes: +GADOBUTROL 10 ML VIAL IVP ONE; -LIDOCAINE 1% 30 ML SDV ONE; -NA BICARBONATE 50 MEQ/50 ML VIAL ONE
== END ==
LOC: FIMAGING 15:24
PROVIDERS: ATTEND Physician Assistant Medical
CPT/HCPCS: 70553; A9585

== ENCOUNTER → 2017-12-12 | Outpatient (CLI) | payer OTHER | LOC: FIMAGING 14:32 | PROVIDERS: ATTEND Nurse Practitioner | DX: Z12.31 Encounter for screening mammogram for malignant neoplasm of breast (principal) ==

== ENCOUNTER → 2018-01-20 | Outpatient (CLI) | payer OTHER ==
--- NOTE | 2018-01-26 12:04 | CPEEG ---
DATE OF STUDY: 01/20/2018 INTERPRETATION: Normal EEG during wakefulness and partial sleep. There were no potentially epilepto genic abnormalities present during the recording. REPORT: This EEG contains 10 Hz alpha activity to the posterior head regions. There was no abnormal activation at rest, during photic stimulation or hyperventilation. The patient intermittently becam e drowsy and fell into light sleep during the study. There was no abnormal activation during drowsin ess, light sleep, or during times of arousal. /[id number]/MODL
== END ==
LOC: FCPNEURO 11:36
PROVIDERS: ATTEND Physician Assistant Medical
DX: G20 Parkinson's disease (principal); R41.3 Other amnesia; R68.89 Other general symptoms and signs

== ENCOUNTER 2018-05-02 19:37 | Emergency (ER) | payer OTHER ==
--- NOTE | 2018-05-02 19:47 | EDPHY ---
H & P Source: Patient - Personal History Tetanus Vaccine Date: < 10 YEARSX - Medical/Surgical History Hx Asthma: No Hx Chronic Respiratory Disease: No Hx Diabetes: Yes Hx Cardiac Disease: Yes Hx Renal Disease: No Hx Cirrhosis: No Hx Alcoholism: No Hx HIV/AIDS: No Hx Splenectomy or Spleen Trauma: No Other PMH: CAD, ASD, HTN - Social History Smoking Status: Never smoked Time Seen by Provider: 05/02/18 19:37 HPI/ROS: HPI CHIEF COMPLAINT: Abdominal pain. HISTORY OF PRESENT ILLNESS: 78-year-old female, history of Parkinson's disease , presents to the emergency room with abdominal pain. Patient states she started developing epigastric abdominal pain. States started approximately 2 hr ago around 6-630. Rather severe 10/10 slowly gotten better but still has pain. Denies chest pain or shortness of breath. Denies vomiting denies diarrhea. Pain is located epigastric reproducible on exam. No chest pain or shortness of breath. Past Medical History: Parkinson's disease and hypertension Past Surgical History: Denies recent surgery has had a hysterectomy Social History: Denies drugs alcohol tobacco. Family History: Noncontributory ROS REVIEW OF SYSTEMS: 10 Systems were reviewed and negative with the exception of the elements mentioned in the history of present illness. Exam Constitutional triage nursing summary reviewed, vital signs reviewed, awake/ alert. Eyes normal conjunctivae and sclera, EOMI, PERRLA. HENT normal inspection, atraumatic, moist mucus membranes, no epistaxis, neck supple/ no meningismus, no raccoon eyes. Respiratory clear to auscultation bilaterally, normal breath sounds, no respiratory distress, no wheezing. Cardiovascular rate normal, regular rhythm, no murmur, no edema, distal pulses normal. Gastrointestinal mild tender palpation, epigastric right upper quadrant, no rebound, no guarding, normal bowel sounds, no distension, no pulsatile mass. Genitourinary no CVA tenderness. Musculoskeletal no midline vertebral tenderness, full range of motion, no calf swelling, no tenderness of extremities, no meningismus, good pulses, neurovascularly intact. Skin pink, warm, & dry, no rash, skin atraumatic. Neurologic awake, alert and oriented x 3, AAOx3, moves all 4 extremities equally, motor intact, sensory intact, CN II-XII intact, normal cerebellar, normal vision, normal speech. Psychiatric normal mood/affect. Heme/Lymph/Immune no lymphadenopathy. Differential Diagnosis: Differential diagnosis includes but is not limited to and in no particular order: Bowel obstruction, appendicitis, gallbladder disease, diverticulitis, colitis, enteritis, perforated viscus, gastritis, GERD , esophagitis, urinary tract infection, pyelonephritis, kidney stones Medical Decision Making: Plan for this patient IV establishment with blood draw , CT scan abdomen pelvis with IV contrast, basic blood work, EKG troponin. Re-evaluation: EKG interpretation by me on record in [employer] system. Impression time of EKG 2020, sinus rhythm rate of 65, I do not appreciate any acute ischemic change. CT scan abdomen pelvis with IV contrast called to me by Dr. Curiel. Negative for acute inflammatory process. No evidence of inflammatory process. Patient's urinalysis reviewed shows UTI. Urine culture ordered. 1 g Rocephin ordered. Ultrasound of the abdomen specifically right upper quadrant gallbladder negative for acute inflammatory process. Called to me by Dr. Curiel EKG interpretation by me on record in [employer] system. Impression time of EKG 2229: This is a repeat EKG sinus rhythm rate of 81 T-wave flattening inferior leads, no ST elevation similar to EKG today. Also when I compare this to her old EKG dated 05/10/2016 is unchanged. Repeat troponin 0.00 Patient re-examined 2243: Patient denies any chest pain or shortness of breath. She is resting comfortably. As for her abdominal pain or epigastric abdominal pain resolved. She was rather tender when she arrived to the emergency room on exam with reproducible epigastric abdominal pain. However her CT scan does not reveal any acute inflammatory process nor does her ultrasound. The patient's blood work has been reviewed is unremarkable. She denies any chest pain or shortness of breath she is requesting be discharged home. 0: Patient most likely will be going home however given her epigastric pain that is now resolved will repeat her troponin at midnight. If this is normal I do feel comfortable allowing to go home she does not have any chest pain or shortness of breath. Dr. Trujillo to follow up Trop. (Mango Yoder) Constitutional: Initial Vital Signs Temperature (C) 36.8 C 05/02/18 19:44 Heart Rate 71 05/02/18 19:44 Respiratory Rate 18 05/02/18 19:44 Blood Pressure 175/92 H 05/02/18 19:44 O2 Sat (%) 96 05/02/18 19:44 O2 Delivery Mode Room Air O2 (L/minute) 2 Allergies/Adverse Reactions: promethazine Allergy (Severe, Verified 05/02/18 19:43) Loss of consciousness promethazine HCl [From Phenergan] Allergy (Severe, Verified 05/02/18 19:43) Other-Enter Comments Shellfish *RETIRED-12/23/11 [Shellfish] Allergy (Severe, Verified 05/02/18 19:43 ) Swelling/neck,face,throat erythromycin base [Erythromycin Base] Allergy (Intermediate, Verified 05/02/18 19:43) Other-Enter Comments Penicillins Allergy (Intermediate, Verified 05/10/16 10:53) Rash Home Medications: Medication Instructions Recorded Aspirin [Aspirin 325 mg (*)] 325 mg PO DAILY 05/10/16 Cholecalciferol Vit D3 [Vitamin D3 2,000 units PO DAILY 05/10/16 (*)] Herbals/Supplements -Info Only 1 ea PO DAILY 05/10/16 Levothyroxine [Synthroid 50 mcg 50 mcg PO DAILY06 05/10/16 (*)] Losartan/Hydrochlorothiazide 1 each PO DAILY 05/10/16 [Losartan-Hctz 100-25 mg Tab] Potassium Cl [Klor-Con 20 meq (*)] 20 meq PO DAILY 05/10/16 Pravastatin Sodium 20 mg PO DAILY 05/10/16 amLODIPine BESYLATE [Norvasc 2.5 2.5 mg PO DAILY 05/10/16 mg (*)] Cephalexin [Keflex] 500 mg PO Q6H #28 cap 05/02/18 Medical Decision Making - Diagnostics Imaging Results: Imaging Impressions Abdomen CT 05/02/18 19:55 Impression: 1. Moderate fecal material; otherwise negative CT examination of the abdomen and pelvis. Results called to Dr. Shaffer at 8:50 PM. Abdomen Ultrasound 05/02/18 21:03 Impression: 1. Negative sonogram right upper quadrant. Results called to Dr. Shaffer at 10:00 PM. Other Provider: 2300 patient signed out to me from Dr. Yoder pending repeat troponin. If normal plan will be for discharge to home per Dr. Yoder plan. 0015 3rd troponin is negative. Will discharge to home per Dr. Yoder plan. ( Augustine Trujillo) - Data Points Laboratory Results: Laboratory Results 05/02/18 19:50 05/02/18 19:50 05/03/18 05/02/18 05/02/18 00:01 22:29 20:45 WBC RBC Hgb Hct MCV MCH MCHC RDW Plt Count MPV Neut % (Auto) Lymph % (Auto) [place] % (Auto) Eos % (Auto) Baso % (Auto) Nucleat RBC Rel Count Absolute Neuts (auto) Absolute Lymphs (auto) Absolute Monos (auto) Absolute Eos (auto) Absolute Basos (auto) Absolute Nucleated RBC Immature Gran % Immature Gran # PT INR APTT VBG Lactic Acid Sodium Potassium Chloride Carbon Dioxide Anion Gap BUN Creatinine Estimated GFR Glucose Calcium Total Bilirubin Conjugated Bilirubin Unconjugated Bilirubin AST ALT Alkaline Phosphatase POC Troponin I 0.00 ng/mL ng/mL 0.00 ng/mL ng/mL (0.00-0.08) (0.00-0.08) Total Protein Albumin Lipase Urine Color PALE YELLOW Urine Appearance CLEAR Urine pH 7.0 (5.0-7.5) Ur Specific [place] 1.011 (1.002-1.030) Urine Protein NEGATIVE (NEGATIVE) Urine Ketones NEGATIVE (NEGATIVE) Urine Blood NEGATIVE (NEGATIVE) Urine Nitrate NEGATIVE (NEGATIVE) Urine Bilirubin NEGATIVE (NEGATIVE) Urine Urobilinogen NEGATIVE EU EU (0.2-1.0) Ur Leukocyte Esterase 2+ H (NEGATIVE) Urine RBC 3-5 /hpf H /hpf (0-3) Urine WBC 15-25 /hpf H /hpf (0-3) Ur Epithelial Cells NONE SEEN /lpf /lpf (NONE-1+) Urine Bacteria TRACE /hpf H /hpf (NONE SEEN) Urine Glucose NEGATIVE (NEGATIVE) 05/02/18 05/02/18 05/02/18 20:26 19:50 19:50 WBC RBC Hgb Hct MCV MCH MCHC RDW Plt Count MPV Neut % (Auto) Lymph % (Auto) [place] % (Auto) Eos % (Auto) Baso % (Auto) Nucleat RBC Rel Count Absolute Neuts (auto) Absolute Lymphs (auto) Absolute Monos (auto) Absolute Eos (auto) Absolute Basos (auto) Absolute Nucleated RBC Immature Gran % Immature Gran # PT 13.1 SEC SEC (12.0-15.0) INR 0.97 (0.83-1.16) APTT 24.6 SEC SEC (23.0-38.0) VBG Lactic Acid Sodium 137 mEq/L mEq/L (135-145) Potassium 3.4 mEq/L L mEq/L (3.5-5.2) Chloride 106 mEq/L mEq/L (97-110) Carbon Dioxide 25 mEq/l mEq/l (22-31) Anion Gap 6 mEq/L mEq/L (6-14) BUN 23 mg/dL mg/dL (7-23) Creatinine 0.8 mg/dL mg/dL (0.6-1.0) Estimated GFR > 60 Glucose 99 mg/dL mg/dL (70-100) Calcium 9.1 mg/dL mg/dL (8.5-10.4) Total Bilirubin 0.6 mg/dL mg/dL (0.1-1.4) Conjugated Bilirubin 0.5 mg/dL mg/dL (0.0-0.5) Unconjugated Bilirubin 0.1 mg/dL mg/dL (0.0-1.1) AST 135 IU/L H IU/L (14-46) ALT 36 IU/L IU/L (9-52) Alkaline Phosphatase 116 IU/L IU/L (38-126) POC Troponin I 0.00 ng/mL ng/mL (0.00-0.08) Total Protein 6.5 g/dL g/dL (6.3-8.2) Albumin 3.9 g/dL g/dL (3.5-5.0) Lipase 280 IU/L IU/L (23-300) Urine Color Urine Appearance Urine pH Ur Specific [place] Urine Protein Urine Ketones Urine Blood Urine Nitrate Urine Bilirubin Urine Urobilinogen Ur Leukocyte Esterase Urine RBC Urine WBC Ur Epithelial Cells Urine Bacteria Urine Glucose 05/02/18 05/02/18 19:50 19:50 WBC 5.99 10^3/uL 10^3/uL (3.80-9.50) RBC 4.31 10^6/uL 10^6/uL (4.18-5.33) Hgb 14.1 g/dL g/dL (12.6-16.3) Hct 40.0 % % (38.0-47.0) MCV 92.8 fL fL (81.5-99.8) MCH 32.7 pg pg (27.9-34.1) MCHC 35.3 g/dL g/dL (32.4-36.7) RDW 12.4 % % (11.5-15.2) Plt Count 248 10^3/uL 10^3/uL (150-400) MPV 9.0 fL fL (8.7-11.7) Neut % (Auto) 56.1 % % (39.3-74.2) Lymph % (Auto) 25.7 % % (15.0-45.0) [place] % (Auto) 8.7 % % (4.5-13.0) Eos % (Auto) 8.0 % H % (0.6-7.6) Baso % (Auto) 1.3 % % (0.3-1.7) Nucleat RBC Rel Count 0.0 % % (0.0-0.2) Absolute Neuts (auto) 3.36 10^3/uL 10^3/uL (1.70-6.50) Absolute Lymphs (auto) 1.54 10^3/uL 10^3/uL (1.00-3.00) Absolute Monos (auto) 0.52 10^3/uL 10^3/uL (0.30-0.80) Absolute Eos (auto) 0.48 10^3/uL H 10^3/uL (0.03-0.40) Absolute Basos (auto) 0.08 10^3/uL 10^3/uL (0.02-0.10) Absolute Nucleated RBC 0.00 10^3/uL 10^3/uL (0-0.01) Immature Gran % 0.2 % % (0.0-1.1) Immature Gran # 0.01 10^3/uL 10^3/uL (0.00-0.10) PT INR APTT VBG Lactic Acid 2.1 mmol/L mmol/L (0.7-2.1) Sodium Potassium Chloride Carbon Dioxide Anion Gap BUN Creatinine Estimated GFR Glucose Calcium Total Bilirubin Conjugated Bilirubin Unconjugated Bilirubin AST ALT Alkaline Phosphatase POC Troponin I Total Protein Albumin Lipase Urine Color Urine Appearance Urine pH Ur Specific [place] Urine Protein Urine Ketones Urine Blood Urine Nitrate Urine Bilirubin Urine Urobilinogen Ur Leukocyte Esterase Urine RBC Urine WBC Ur Epithelial Cells Urine Bacteria Urine Glucose Medications Given: Discontinued Medications Hydromorphone HCl (Dilaudid) 0.5 mg IVP EDNOW ONE Stop: 05/02/18 19:56 Last Admin: 05/02/18 20:04 Dose: 0.5 mg Sodium Chloride (Ns) 1,000 mls @ 0 mls/hr IV EDNOW ONE; Wide Open PRN Reason: Protocol Stop: 05/02/18 19:56 Last Admin: 05/02/18 20:03 Dose: 1,000 mls Ceftriaxone Sodium/Dextrose (Rocephin 1 Gm (Premix)) 50 mls @ 100 mls/hr IV EDNOW ONE PRN Reason: Protocol Stop: 05/02/18 22:25 Last Admin: 05/02/18 22:02 Dose: 50 mls Ondansetron HCl (Zofran) 4 mg IVP EDNOW ONE Stop: 05/02/18 19:56 Last Admin: 05/02/18 20:04 Dose: 4 mg Point of Care Test Results: Chemistry 05/03/18 05/02/18 05/02/18 00:01 22:29 20:26 POC Troponin I 0.00 ng/mL ng/mL 0.00 ng/mL ng/mL 0.00 ng/mL ng/mL (0.00-0.08) (0.00-0.08) (0.00-0.08) Departure - Departure Disposition: Home, Routine, Self-Care Clinical Impression: Urinary tract infection, Abdominal pain Condition: Good Instructions: Urinary Tract Infection in Women (ED), Acute Abdominal Pain (ED) Additional Instructions: 1. Drink lots of fluids stay well-hydrated 2. Antibiotics as prescribed for you're urinary tract infection 3. Return to the emergency room if you have worsening abdominal pain fever vomiting Referrals: An Pires, CORPORATE TRAVEL MANAGER [Primary Care Provider] - As per Instructions Prescriptions: Cephalexin [Keflex] 500 mg PO Q6H #28 cap
[2018-05-02] MEDS ORDERED: HYDROmorphONE/DILAUDID 2 MG/ML INJ IVP ONE (19:55)
[2018-05-02] MEDS ORDERED: NS 1,000 ML IV ONE (19:55)
[2018-05-02] MEDS ORDERED: ONDANSETRON 4 MG/2 ML VIAL IVP ONE (19:55)
[2018-05-02 20:11] LABS: PLATELET COUNT 248 10^3/uL (150-400)
[2018-05-02 20:19] LABS: INR 0.97 (0.83-1.16); PROTIME(PATIENT) 13.1 SEC (12.0-15.0)
[2018-05-02] MEDS ORDERED: IOPAMIDOL (ISOVUE 370) 100 ML BTL IV ONE ×2 (20:24→20:25)
--- NOTE | 2018-05-02 23:10 | CPEKG ---
Test Reason : OPEN Blood Pressure : / mmHG Vent. Rate : 065 BPM Atrial Rate : 065 BPM P-R Int : 166 ms QRS Dur : 093 ms QT Int : 477 ms P-R-T Axes : -01 028 018 degrees QTc Int : 496 ms Sinus rhythm Borderline prolonged QT interval Confirmed by Mango Yoder ([id number]) on 05/02/2018 11:10:05 PM Referred By: Confirmed By:Mango Yoder
--- NOTE | 2018-05-02 23:10 | CPEKG ---
Test Reason : OPEN Blood Pressure : / mmHG Vent. Rate : 081 BPM Atrial Rate : 082 BPM P-R Int : 166 ms QRS Dur : 091 ms QT Int : 412 ms P-R-T Axes : 039 002 029 degrees QTc Int : 479 ms Sinus rhythm Atrial premature complex Borderline T abnormalities, inferior leads Confirmed by Mango Yoder ([id number]) on 05/02/2018 11:10:05 PM Referred By: Confirmed By:Mango Yoder
[2018-05-03 00:28] VITALS: BP 132/69
== END 2018-05-03 00:27 | disposition home or self-care (01) ==
DX: N39.0 Urinary tract infection, site not specified (principal); R10.13 Epigastric pain; G20 Parkinson's disease; I10 Essential (primary) hypertension
CPT/HCPCS: 74177; 76705; 93005; 96361; 96365; 96375; 99285; J0696; J1170; J2405; Q9967; 84484-ER